=== PATIENT | female | born 1975 | race Caucasian/White ===

== ENCOUNTER 2021-07-22 20:30 | Emergency (ER) | payer MEDICAID ==
[~2021-07-22] VITALS: Ht 162.6 cm; Wt 86.0 kg
[2021-07-23] MEDS ORDERED: CYCLOBENZAPRINE 10MG TABLET PO ONE (02:00)
[2021-07-23] MEDS ORDERED: KETOROLAC 15MG/ML VIAL IM ONE (02:00)
[2021-07-23] MEDS ORDERED: CYCL10TA7 MT (02:16)
[2021-07-23] MEDS ORDERED: IBUP-2028 MT (02:16)
[2021-07-23 02:35] VITALS: BP 114/56
== END 2021-07-23 02:40 | disposition home or self-care (01) ==
LOC: ER 20:30
DX: M54.32 Sciatica, left side (principal)
CPT/HCPCS: 96372; 99283; J1885

== ENCOUNTER 2022-01-06 16:48 | Emergency (ER) | payer MEDICAID ==
[~2022-01-06] VITALS: Ht 162.6 cm; Wt 73.0 kg
[~2022-01-06 16:48] MED LIST: CYCL10TA21 MT; IBUP-2028 MT
[2022-01-06 17:05] VITALS: BP 118/78
[2022-01-06] MEDS ORDERED: KETOROLAC 60MG/2ML VIAL IM ONE (20:15)
[2022-01-06 20:43] LABS: CLARITY URINE CLOUDY (CLEAR); COLOR URINE DARK YELLOW (YELLOW); KETONES URINE NEGATIVE (NEGATIVE); LEUKOCYTE ESTERASE URINE TRACE (NEGATIVE); NITRITE URINE POSITIVE (NEGATIVE); OCCULT BLOOD URINE 1+ (NEGATIVE); PROTEIN URINE NEGATIVE (NEGATIVE); SPECIFIC GRAVITY URINE 1.021 (1.005-1.030)
[2022-01-06] MEDS ORDERED: CEFTRIAXONE SODIUM 1 G/VIAL IM ONE (21:00)
[2022-01-06] MEDS ORDERED: LIDOCAINE HCL 1% 20ML VIAL (Pyxis) INJ INFIL ONE (21:00)
[2022-01-06 21:55] LABS: BASOPHILS % 0.4 % (0.0-2.0); EOSINOPHILS % 1.9 % (0.0-5.0); HEMATOCRIT. 40.4 % (36.0-48.0); HEMOGLOBIN. 13.6 g/dL (12.0-16.0); LYMPHOCYTES % 28.2 % (20.0-50.0); MEAN CORPUSCULAR HEMOGLOBIN 31.2 pg (28.0-32.0); MEAN CORPUSCULAR VOLUME 92.4 fL (81.0-99.0); MEAN PLATELET VOLUME 8.3 fl (7.4-10.4); MONOCYTES % 8.4 % (2.0-8.0); NEUTROPHILS % 61.1 % (40.0-76.0); PLATELET 232 x1000/uL (130-400); RED BLOOD CELL COUNT 4.37 mill/uL (4.2-5.4); RED CELL DISTRIBUTION WIDTH 12.9 % (11.6-14.6)
[2022-01-06 22:04] LABS: CHLORIDE 108 mEq/L (98-107)
[2022-01-06 22:14] LABS: HCG SCREEN NEGATIVE
[2022-01-06] MEDS ORDERED: CEPH500C2 MT (23:03)
[2022-01-06] MEDS ORDERED: IBUP-2028 MT (23:03)
[2022-01-06] MEDS ORDERED: KETOROLAC 60MG/2ML VIAL IM NR (23:30)
== END 2022-01-06 23:34 | disposition home or self-care (01) ==
LOC: ER 16:48
DX: N39.0 Urinary tract infection, site not specified (principal); N10 Acute pyelonephritis; M25.562 Pain in left knee; M25.561 Pain in right knee; K57.90 Diverticulosis of intestine, part unspecified, without perforation or abscess without bleeding; K76.0 Fatty (change of) liver, not elsewhere classified; N88.8 Other specified noninflammatory disorders of cervix uteri; N28.1 Cyst of kidney, acquired
CPT/HCPCS: 36415; 72100; 74176; 80053; 81003; 83690; 84703; 85025; 93970; 96372; 99285; J0696; J1885

== ENCOUNTER 2022-08-26 08:33 | Emergency (ER) | payer MEDICAID ==
[~2022-08-26] VITALS: Ht 162.6 cm; Wt 91.0 kg
[~2022-08-26 08:33] MED LIST changes: +CEPH500C2 MT
[2022-08-26 08:47] VITALS: BP 124/39
[2022-08-26] MEDS ORDERED: AMOX1TAB16 MT (10:09)
[2022-08-26] MEDS ORDERED: IBUP-2028 MT (10:12)
[2022-08-26] MEDS ORDERED: TETANUS, DIPHTHERIA, PERTUSSIS VAC/PF 0.5ML (>10YR OLD) IM ONE (10:30)
== END 2022-08-26 10:25 | disposition home or self-care (01) ==
LOC: ER 08:33
DX: M25.552 Pain in left hip (principal); M25.551 Pain in right hip; Z90.49 Acquired absence of other specified parts of digestive tract; Z98.890 Other specified postprocedural states
CPT/HCPCS: 72170; 81025; 90471; 90715; 99283; Z7610

== ENCOUNTER 2023-06-04 11:46 | Emergency (ER) | payer MEDICAID ==
[~2023-06-04] VITALS: Ht 162.6 cm; Wt 73.0 kg
[~2023-06-04 11:46] MED LIST changes: +AMOX1TAB16 MT
[2023-06-04 11:58] VITALS: O2SAT 99
[2023-06-04 14:12] VITALS: BP 139/68; PULSE 74; RESP 16; TEMP 98.2
== END 2023-06-04 14:14 | disposition home or self-care (01) ==
LOC: ER 12:35
DX: S93.402A Sprain of unspecified ligament of left ankle, initial encounter (principal); S63.501A Unspecified sprain of right wrist, initial encounter; Z98.890 Other specified postprocedural states; Z90.49 Acquired absence of other specified parts of digestive tract; X58.XXXA Exposure to other specified factors, initial encounter; Y93.89 Activity, other specified; Y92.89 Other specified places as the place of occurrence of the external cause; Y99.8 Other external cause status
CPT/HCPCS: 73110; 73610; 99284

== ENCOUNTER 2023-09-19 02:42 | Emergency (ER) | payer MEDICAID, OTHER ==
[~2023-09-19] VITALS: Ht 162.6 cm; Wt 87.0 kg
[2023-09-19 03:09] VITALS: O2SAT 100
[2023-09-19 05:44] VITALS: BP 114/60; PULSE 62; RESP 16; TEMP 97.5
== END 2023-09-19 05:46 | disposition home or self-care (01) ==
LOC: ER 02:42
DX: M65.311 Trigger thumb, right thumb (principal)
CPT/HCPCS: 29125; 73130; 73140; 99284

== ENCOUNTER 2024-08-17 01:49 | Emergency (ER) | payer OTHER ==
[~2024-08-17] VITALS: Ht 162.6 cm; Wt 91.7 kg
[2024-08-17 01:54] VITALS: O2SAT 100
[2024-08-17 02:04] VITALS: TEMP 36.6
[2024-08-17 04:38] VITALS: BP 125/62; PULSE 69; RESP 17
[2024-08-17] MEDS: KETOROLAC 30MG/ML VIAL IM ONE (04:38)
[2024-08-17] MEDS ORDERED: CYCL10TA21 MT (05:12)
[2024-08-17] MEDS ORDERED: NAPR-1176 MT (05:12)
== END 2024-08-17 05:30 | disposition home or self-care (01) ==
LOC: ER 01:49
DX: S70.01XA Contusion of right hip, initial encounter (principal); S90.31XA Contusion of right foot, initial encounter; Z79.899 Other long term (current) drug therapy; Z90.49 Acquired absence of other specified parts of digestive tract; W18.30XA Fall on same level, unspecified, initial encounter; Y99.0 Civilian activity done for income or pay; Y92.89 Other specified places as the place of occurrence of the external cause
CPT/HCPCS: 99284; 73502; 73630; 96372; J1885